=== PATIENT | female | born 1990 | race Two or more races ===

== ENCOUNTER 2020-06-14 08:00 | Inpatient (IN) | payer OTHER ==
[~2020-06-14] VITALS: Ht 160 cm; Wt 90.7 kg
[~2020-06-14 08:00] MED LIST: CIPRO500 MG; CLONAZEPAM0.5 MG; FIORICET PO; RELAGESIC TABLE1 TAB; ZOLOFT50 MG; [UNRECOGNIZED DRUG - OTHER]
[2020-06-14] MEDS ORDERED: INDERAL XL80 MG (08:17)
[2020-06-14] MEDS ORDERED: CANDESARTAN CILE8 MG (08:17)
== END 2020-06-19 15:12 | disposition home or self-care (01) | DRG 72 ==
LOC: ER 08:00 → MEDI 16:52
PROVIDERS: ADMIT Internal Medicine; ATTEND Internal Medicine
PROC: BW28ZZZ Computerized Tomography (CT Scan) of Head (ICD-10-PCS; principal; 2020-06-14)
PROC: B030ZZZ Magnetic Resonance Imaging (MRI) of Brain (ICD-10-PCS; 2020-06-14)
PROC: B34KZZZ Ultrasonography of Bilateral Upper Extremity Arteries (ICD-10-PCS; 2020-06-15)
PROC: B24BYZZ Ultrasonography of Heart with Aorta using Other Contrast (ICD-10-PCS; 2020-06-16)
PROC: B030Y0Z Magnetic Resonance Imaging (MRI) of Brain using Other Contrast, Unenhanced and Enhanced (ICD-10-PCS; 2020-06-16)
PROC: BW25Y0Z Computerized Tomography (CT Scan) of Chest, Abdomen and Pelvis using Other Contrast, Unenhanced and Enhanced (ICD-10-PCS; 2020-06-17)
DX: G93.9 Disorder of brain, unspecified (principal); G93.89 Other specified disorders of brain; I10 Essential (primary) hypertension; F41.9 Anxiety disorder, unspecified; R53.81 Other malaise; Z20.828 Contact with and (suspected) exposure to other viral communicable diseases
CPT/HCPCS: 70544; 70552

== ENCOUNTER 2021-05-02 18:20 | Emergency (ER) | payer OTHER ==
[~2021-05-02] VITALS: Ht 160 cm; Wt 90.7 kg
[~2021-05-02 18:20] MED LIST changes: +CANDESARTAN CILE8 MG; +INDERAL XL80 MG
== END 2021-05-02 19:26 | disposition home or self-care (01) ==
LOC: ER 18:20
DX: F41.0 Panic disorder [episodic paroxysmal anxiety] (principal)

== ENCOUNTER 2023-07-04 20:09 | Emergency (ER) | payer OTHER ==
[~2023-07-04] VITALS: Ht 160 cm; Wt 87.1 kg
[2023-07-05 01:11] LABS: HEMATOCRIT 38.1 % (36.0-45.00); HEMOGLOBIN 12.8 g/dL (12.0-15.00); MEAN CELL VOLUME 86.8 fL (80.00-100.00); MEAN CORPUSCULAR HEMOGLOBIN 29.2 pg (27.00-32.0); MEAN CORPUSCULAR HGB CONC 33.6 g/dl (32.0-36.0); PLATELET COUNT 300 K/uL (150-450); RED BLOOD COUNT 4.39 M/uL (4.00-6.00); RED CELL DISTRIBUTION WIDTH 12.9 % (11.5-14.5)
[2023-07-05 01:23] LABS: INR < 0.93; PARTIAL THROMBOPLASTIN TIME 25.7 SECONDS (22.0-34.0); PROTHROMBIN TIME 9.7 SECONDS (9.0-11.5)
[2023-07-05 01:33] LABS: PH,URINE 5.5 (5.0-8.0); URINE APPEARANCE Clear; URINE BILIRRUBIN Negative (NEGATIVE); URINE BLOOD Moderate; URINE COLOR Yellow; URINE GLUCOSE Negative (NEGATIVE); URINE LEUKOCYTE Negative; URINE NITRATE Negative; URINE PROTEIN Negative (NEGATIVE); URINE UROBILINOGEN 0.2 E.U./dl
[2023-07-05 01:36] LABS: URINE BACTERIA 190.2 uL (0.0-1933); URINE EPITHELIAL CELLS 25.1 uL (0.0-38.8); URINE WBC 5.1 uL (0.0-23.2)
[2023-07-05 02:06] LABS: CALCIUM 8.9 mg/dL (8.5-10.1); CREATININE SERUM 0.66 mg/dL (0.55-1.02); GFR 101.91; POTASSIUM 3.75 mEq/L (3.5-5.1)
== END 2023-07-05 05:09 ==
LOC: ER 20:09
PROVIDERS: General Practice
DX: O20.0 Threatened abortion (principal); Z3A.11 11 weeks gestation of pregnancy